=== PATIENT | female | born 1990 | race Caucasian/White ===

== ENCOUNTER 2016-10-15 18:37 | Emergency (ER) | payer OTHER ==
[~2016-10-15] VITALS: Ht 167.6 cm; Wt 96.2 kg
--- NOTE | 2016-10-15 19:04 | PHYS DOC ---
General Chief Complaint: ABDOMINAL PAIN Stated Complaint: ABD PAIN Time Seen by MD: 18:49 Source: patient Exam Limitations: no limitations Problems: History of Present Illness Initial Comments Pt is 25/F to ED c/o abdominal pain. Pt has h/o GERD/gastritis, follows with a GI doctor in [place], [place]. States her last EGD she thinks was seven years ago, GERD sx have been controlled. Past 2 days mild GI upset, today worsening of epigastric burning pain with belching and "taste of blood." Sx worse after eating certain foods, her usual GERD meds not helping. No vomitting/diarrhea, last BM yesterday normal. Multiple sick contacts with GI illness recently, pt denies bad food/travel. No fever/chills/myalgias/FREITAS/cp/sob/bowel or bladder sx. Timing/Duration: 24 hours Severity: moderate Modifying Factors: worse with eating Associated Symptoms: malaise, nausea/vomiting, other Allergies: Coded Allergies: ampicillin (Verified Allergy, Unknown, 10/15/16) promethazine (Verified Allergy, Unknown, 10/15/16) Past Medical History Medical History: GERD (gastritis), peptic ulcer disease Surgical History: cholecystectomy Social History Smoker: non-smoker Alcohol: none Drugs: none Review of Systems Constitutional: denies chills, denies diaphoresis, denies fever, denies malaise EENTM: denies eye pain, denies ear pain, denies nose pain, throat pain ( burning)denies throat swelling Respiratory: denies cough, denies shortness of breath, denies wheezing Cardiovascular: denies chest pain, denies palpitations, denies syncope Gastrointestinal: see HPI abdominal paindenies diarrhea, nauseadenies vomiting, other Genitourinary: denies dysuria, denies frequency, denies hematuria Musculoskeletal: denies back pain, denies joint swelling, denies muscle stiffness, denies neck pain Psychiatric/Neurological: denies headache, denies numbness, denies paresthesia Hematologic/Lymphatic: denies blood clots, denies easy bleeding, denies easy bruising Physical Exam General Appearance: WD/WN, no apparent distress Eyes: bilateral eye EOMI, bilateral eye PERRL, bilateral eye normal inspection Ear, Nose, Throat: hearing grossly normal, normal ENT inspection, normal pharynx Neck: non-tender, supple Respiratory: normal breath sounds, no respiratory distress Gastrointestinal: normal bowel sounds, soft (ND, epigastric TTP no r/g/mass, neg mcburney) Rectal: deferred Back: no CVA tenderness, no vertebral tenderness Extremities: non-tender, normal inspection 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 Continue current meds. OTC tylenol and analgesic throat sprays as needed. Aggressive hydration with gatorade, water. Rx: zithromax Follow up with your doctor in 5-7 days for recheck. Return to ED with new or changing symptoms. Orders, Labs, Meds 2030: Time in dept 1h 55min, pt feeling better labs unremarkable UA pending. UA unremarkable. Pt requesting discharge. Departure Time of Disposition: 20:32 Disposition: HOME, SELF-CARE Diagnosis: Pharyngitis, GERD/Gastritis Condition: IMPROVED Patient Instructions: Diet for Gastroesophageal Reflux Disease, Adult, Easy-to- Read, Gastroesophageal Reflux Disease, Adult, Dyoy-so-Pyxi, Viral and Bacterial Pharyngitis, Zzdo-wv-Xlje Additional Instructions: See handouts for GERD therapeutic lifestyle measures and dietary changes. Continue current meds. OTC tylenol and analgesic throat sprays as needed. Aggressive hydration with gatorade, water. Rx: zithromax Follow up with your doctor in 5-7 days for recheck. Return to ED with new or changing symptoms. RACHEL PUGA DO Oct 15, 2016 19:04
[2016-10-15] MEDS ORDERED: LIDO:MAALOX 1:1 20 ML SINGLE DOSE PO ONE (19:15)
[2016-10-15] MEDS ORDERED: ONDANSETRON ODT 4 MG TAB.RAPDIS PO ONE (19:15)
[2016-10-15 19:58] LABS: BASO # 0.1 x10^3/uL (0.0-0.2); BASO % 1 % (0-3); EOS # 0.1 x10^3/uL (0.0-0.7); EOS % 1 % (0-3); HEMOGLOBIN 13.4 g/dL (12.0-15.5); LYMPH # 2.4 x10^3/uL (1.0-4.8); LYMPH % 21 % (24-48); MEAN CORPUSCULAR HEMOGLOBIN 27 pg (25-35); MEAN CORPUSCULAR HGB CONC 33 g/dL (31-37); MEAN CORPUSCULAR VOLUME 83 fL (79-100); MONO # 0.6 x10^3/uL (0.0-1.1); MONO % 5 % (0-9); NEUT # 8.3 x10^3uL (1.8-7.7); NEUT % 72 % (31-73); PLATELET COUNT 398 x10^3/uL (140-400); RED BLOOD COUNT 4.95 x10^6/uL (3.50-5.40); RED CELL DISTRIBUTION WIDTH 15.7 % (11.5-14.5); WHITE BLOOD COUNT 11.4 x10^3/uL (4.0-11.0)
[2016-10-15 20:06] LABS: ALBUMIN 4.2 g/dL (3.4-5.0); CALCIUM 9.4 mg/dL (8.5-10.1); CREATININE 0.6 mg/dL (0.6-1.0); GFR 123.9; POTASSIUM 4.1 mmol/L (3.5-5.1); TOTAL BILIRUBIN 0.3 mg/dL (0.2-1.0); TOTAL PROTEIN 8.5 g/dL (6.4-8.2)
[2016-10-15 20:42] LABS: BACTERIA,URINE 0 /HPF (0-FEW); BILIRUBIN,URINE NEG (NEG); CLARITY,URINE CLEAR; COLOR,URINE STRAW; GLUCOSE,URINE NEG (NEG); NITRITE,URINE NEG (NEG); RBC,URINE 0 /HPF (0-2); SQUAMOUS EPITHELIAL CELL,UR OCC /LPF; UROBILINOGEN,URINE 0.2 mg/dL (0.2 mg/dL); WBC,URINE OCC /HPF (0-4)
[2016-10-15] MEDS ORDERED: AZIT250T PO (20:50)
[2016-10-15 21:00] VITALS: BP 136/72
[2016-10-15] MEDS ORDERED: AZITHROMYCIN 250 MG TABLET. PO ONE (21:00)
== END 2016-10-15 21:16 | disposition home or self-care (01) ==
LOC: ER 18:37
DX: J02.9 Acute pharyngitis, unspecified (principal); K21.9 Gastro-esophageal reflux disease without esophagitis; K29.70 Gastritis, unspecified, without bleeding; Z87.11 Personal history of peptic ulcer disease; Z90.49 Acquired absence of other specified parts of digestive tract; Z88.1 Allergy status to other antibiotic agents; Z88.8 Allergy status to other drugs, medicaments and biological substances
CPT/HCPCS: 36415; 80053; 81001; 83690; 84703; 85027; 99284; J0456; Q0162; 81025

== ENCOUNTER 2016-11-07 00:16 | Emergency (ER) | payer OTHER ==
[~2016-11-07] VITALS: Ht 167.6 cm; Wt 83.0 kg
[~2016-11-07 00:16] MED LIST: AZIT250T PO
[2016-11-07 00:53] VITALS: BP 115/74
--- NOTE | 2016-11-07 01:13 | PHYS DOC ---
General Chief Complaint: FACE PROBLEM Stated Complaint: FACIAL PAIN Time Seen by MD: 01:01 Source: patient Problems: History of Present Illness Initial Comments Patient with male friend for sinus congestion. Patient says his been going on for the past several days. She feels very full and her sinus areas, especially the maxillary sinus areas. She says she feels very dry and somewhat congested as well. She's actually had no runny nose with this. She has no fever or chills. There is no earache. There is no sore throat. No trouble swallowing or talking that she has no complaint of postnasal drip. There is no chest pain or shortness of breath. She has a very slight nonproductive cough. There is no nausea or vomiting. She has no abdominal pain. There is no change amount or bladder habits and she denies any focal extremity or neurologic complaints. She has a Norplant implant and denies chance of . Patient used multiple tnuh-oct-xnefjbb preparations for this including fbbz-oxd-dnperqw cough and cold medications, steam treatments, and Claritin. She says nothing is helpful to her. She says she is afraid that she will be able to breathe well she sleeps , and says that she woke up from sleep today with trouble breathing because she couldn't breathe through her nose. Other than present for care there is been nothing else done for this at home except as described and no other increasing or decreasing factors noted. Patient's past history is remarkable for anxiety and depression as well as reflux and low thyroid. She takes appropriate medication. She is a nonsmoker and nonuser of ethanol. Allergies: Coded Allergies: ampicillin (Verified Allergy, Unknown, 10/15/16) promethazine (Verified Allergy, Unknown, 10/15/16) Past Medical History Medical History: GERD, peptic ulcer disease, other Surgical History: cholecystectomy Psychosocial History: anxiety Social History Smoker: non-smoker Alcohol: none Review of Systems All Other Systems: Reviewed and Negative Physical Exam General Appearance: WD/WN, no apparent distress Ear, Nose, Throat: normal ENT inspection, normal pharynx, other Neck: full range of motion, supple, normal inspection Respiratory: lungs clear, normal breath sounds, no respiratory distress Cardiovascular: regular rate, rhythm, no edema Neurologic/Psychiatric: alert, normal mood/affect, oriented x 3 Skin: normal color Lymphatic: no adenopathy Comments Generally this well-developed well-nourished white female in no acute distress. Vitals are as noted. She is noted to have somewhat of a voice suggestive of nasal congestion. Pertinent findings on physical exam shows ears and throat to be clear. The nose is clear. She does have tenderness to palpation over the maxillary sinuses bilaterally. There is no facial swelling, erythema, or signs of cellulitis. She has no dysphagia or dysphonia or problems with secretions. Neck is supple without adenopathy or JVD. There's no meningeal signs. Chest is clear and cardiovascular exams unremarkable. She is awake alert oriented and cooperative. Remainder of physical exam is clinically unremarkable. Orders, Labs, Meds Old charts note a single ER visit last month for pharyngitis and reflux. I discussed the patient most likely diagnosis of sinusitis. She is not febrile, there is no pustular drainage or discharge or mucus noted, and I really think this probably more viral in nature. Ago and prescribed person appropriate decongestant as well as some Afrin nasal spray. I written a prescription for Bromfed-DM accordingly. She may certainly continue to use Claritin and other cmqr-dem-grsttdo medication at home. We discussed further home care including rest, increasing fluids, warm compresses to the areas of the face, and use steam treatments. I did provide her reassurance that she will fact not stop breathing if she can't breathe through her nose, that her body will take over and she will be able to breathe through her mouth. She does say that she has a primary care physician for follow-up, she is encouraged to follow up with her own doctor this week or return to the ER sooner as needed if worsen anyway. She looks well, in no acute discomfort distress, okay for discharge home at this time. RAFFI FALK MD Nov 07, 2016 01:13
== END 2016-11-07 01:21 | disposition home or self-care (01) ==
LOC: ER 00:16
DX: R09.81 Nasal congestion (principal); R05 Cough; K21.9 Gastro-esophageal reflux disease without esophagitis; Z87.11 Personal history of peptic ulcer disease; Z88.0 Allergy status to penicillin; Z88.8 Allergy status to other drugs, medicaments and biological substances
CPT/HCPCS: 99282; 99283

== ENCOUNTER 2020-07-11 20:10 | Emergency (ER) | payer MEDICAID, OTHER ==
[~2020-07-11] VITALS: Ht 167.6 cm; Wt 109.3 kg
[2020-07-11 20:55] VITALS: BP 115/74
--- NOTE | 2020-07-11 20:59 | PHYS DOC ---
Past History Past Medical History: Anxiety, Depression, GERD, Hypothyroid, Other (MASTER MOURA APRN) Past Surgical History: Cholecystectomy (MASTER MOURA APRN) Alcohol Use: None Drug Use: None (MASTER MOURA APRN) General Adult EDM: Chief Complaint: MULTIPLE COMPLAINTS HPI: HPI: Patient is a 29-year-old female who presents with sinus pressure, headache x1 week. Patient denies fever, vomiting, diarrhea. Patient states that she has been taking Benadryl and Tylenol for pain. (MASTER MOURA APRN) Review of Systems: Review of Systems: Constitutional: Denies fever or chills Eyes: Denies change in visual acuity HENT: Reports nasal congestion or sore throat Respiratory: Denies cough or shortness of breath Cardiovascular: Denies chest pain or edema GI: Denies abdominal pain, nausea, vomiting, bloody stools or diarrhea : Denies dysuria Musculoskeletal: Denies back pain or joint pain Integument: Denies rash Neurologic: Denies focal weakness or sensory changes, reports headache Endocrine: Denies polyuria or polydipsia Lymphatic: Reports swollen cervical lymph nodes Psychiatric: Denies depression or anxiety (MASTER MOURA APRN) Allergies: Allergies: Allergies Coded Allergies Type Severity Reaction Last Updated Verified ampicillin Allergy Unknown 10/15/16 Yes promethazine Allergy Unknown 10/15/16 Yes (MASTER MOURA APRN) Physical Exam: PE: Constitutional: Well developed, well nourished, no acute distress, non-toxic appearance. [] HENT: Normocephalic, atraumatic, bilateral external ears normal, oropharynx moist, no oral exudates, nose normal. [] Eyes: PERRLA, EOMI, conjunctiva normal, no discharge. [] Neck: Normal range of motion, no tenderness, supple, no stridor. [] Cardiovascular:Heart rate regular rhythm, no murmur [] Lungs & Thorax: Bilateral breath sounds clear to auscultation [] Abdomen: Bowel sounds normal, soft, no tenderness, no masses, no pulsatile masses. [] Skin: Warm, dry, no erythema, no rash. [] Back: No tenderness, no CVA tenderness. [] Extremities: No tenderness, no cyanosis, no clubbing, ROM intact, no edema. [] Neurologic: Alert and oriented X 3, normal motor function, normal sensory function, no focal deficits noted. [] Psychologic: Affect normal, judgement normal, mood normal. [] (MASTER MOURA APRN) EKG: EKG: [] (MASTER MOURA APRN) Radiology/Procedures: Radiology/Procedures: [] (MASTER MOURA APRN) Heart Score: Risk Factors: Risk Factors: DM, Current or recent (<one month) smoker, HTN, HLP, family history of CAD, obesity. Risk Scores: Score 0 - 3: 2.5% MACE over next 6 weeks - Discharge Home Score 4 - 6: 20.3% MACE over next 6 weeks - Admit for Clinical Observation Score 7 - 10: 72.7% MACE over next 6 weeks - Early Invasive Strategies (MASTER MOURA APRN) Course & Med Decision Making: Course & Med Decision Making Pertinent Labs and Imaging studies reviewed. (See chart for details) []Patient dcd to home for supportive care. Patient instructed to follow up with PCP at the beginning of the week if symptoms not imporoving. Continue OTC, Mucinex, Motrin. (MASTER MOURA APRN) Course & Med Decision Making I oversaw on the above date of service of this patient and discussed the care with the THERAPEUTIC ASSISTANT. I agree with the findings, plan of care, and disposition as documented. (MARIELENA VIZCARRA DO) Rema Disclaimer: Rema Disclaimer: This electronic medical record was generated, in whole or in part, using a voice recognition dictation system. (MASTER MOURA APRN) Departure Departure: Impression: Primary Impression: Sinusitis Qualified Codes: J01.01 - Acute recurrent maxillary sinusitis Disposition: DC HOME SELF CARE/HOMELESS Condition: STABLE Referrals: MER CLAROS (PCP) Patient Instructions: Sinusitis, Child Additional Instructions: Please take over the counter Mucinex D and Motrin for treatment of symptoms. Warm,Salt Water, Gargles, will also help with sore throat from drainage. Please follow up with your Primary Care Provider if symptoms are worsening by middle of the week. Thank you! MASTER MOURA APRN Jul 11, 2020 20:59 MARIELENA VIZCARRA DO Jul 12, 2020 21:27
== END 2020-07-11 21:16 | disposition home or self-care (01) ==
LOC: ER 20:10
DX: J01.01 Acute recurrent maxillary sinusitis (principal); R51.9 Headache, unspecified; R09.81 Nasal congestion; F41.9 Anxiety disorder, unspecified; F32.9 Major depressive disorder, single episode, unspecified; K21.9 Gastro-esophageal reflux disease without esophagitis; E03.9 Hypothyroidism, unspecified; Z90.49 Acquired absence of other specified parts of digestive tract; Z88.1 Allergy status to other antibiotic agents; Z88.8 Allergy status to other drugs, medicaments and biological substances
CPT/HCPCS: 99284

== ENCOUNTER 2020-08-05 13:16 | Emergency (ER) | payer MEDICAID ==
[~2020-08-05] VITALS: Ht 167.6 cm; Wt 106.0 kg
--- NOTE | 2020-08-05 15:14 | PHYS DOC ---
Past History Past Medical History: Anxiety, Depression, GERD, Hypothyroid, Migraines, Other Past Surgical History: Cholecystectomy, Tubal ligation, Other Additional Past Surgical Histo: oral surgery; lithotrypsy; abdominal scoping Alcohol Use: None Drug Use: None General Adult EDM: Chief Complaint: MECHANICAL FALL HPI: HPI: 29-year-old female presents to the ED with complaints of bilateral upper abdominal pain after patient slipped on a wet floor, fell forward on a plastic laundry basket. States she is worried she " injured something internally, pain is almost as when I was induced." Not on any anticoagulants. Denied her head or lose consciousness. No associated alcohol or drug use. No history of prior abdominal traumatic injury. Review of Systems: Review of Systems: Constitutional: Denies fever or chills Eyes: Denies change in visual acuity HENT: Denies nasal congestion or sore throat Respiratory: Denies cough or shortness of breath Cardiovascular: Denies chest pain or edema GI: Denies abdominal pain, nausea, vomiting, bloody stools or diarrhea : Denies dysuria Musculoskeletal: Denies back pain or joint pain Integument: Denies rash Neurologic: Denies headache, focal weakness or sensory changes Endocrine: Denies polyuria or polydipsia Lymphatic: Denies swollen glands Psychiatric: Denies depression or anxiety Current Medications: Current Meds: Current Medications Medications (Trade) Dose Ordered Sig/Loree Start Time Stop Time Status Last Admin Dose Admin Info (Do NOT chart on this entry -- for MONITORING) 1 each PRN DAILY PRN 08/05/20 15:15 08/07/20 15:14 Iohexol (Omnipaque 300 Mg/ml) 75 ml 1X ONCE 08/05/20 15:15 08/05/20 15:16 Allergies: Allergies: Allergies Coded Allergies Type Severity Reaction Last Updated Verified ampicillin Allergy Unknown 10/15/16 Yes promethazine Allergy Unknown 10/15/16 Yes Physical Exam: PE: Constitutional: Well developed, well nourished, no acute distress, non-toxic appearance. Ambulates steadily in no distress-go from sitting to standing in no distress HENT: Normocephalic, atraumatic, Eyes: EOMI, conjunctiva normal, no discharge. Neck: Normal range of motion, supple, Cardiovascular: S1/2 present, regular rhythm Lungs & Thorax: Speaking in full sentences, bilateral equal chest rise, no tachypnea or increased work of breathing Abdomen: soft, mild left upper quadrant tenderness (grimaces) and epigastric tenderness, no Moreno sign (has no GB), no lower abdominal pain, no peritonitis or rigidity Skin: Warm, dry, no erythema, no rash. [] Back: No tenderness, no CVA tenderness. [] Extremities: No tenderness, no cyanosis, no edema Neurologic: Alert and oriented X 3, normal motor function, normal sensory function, no focal deficits noted. [] Psychologic: Affect normal, judgement normal, mood normal. [] Current Patient Data: Labs: Laboratory Tests Test 08/05/20 13:48 POC Urine HCG, Qualitative hcg negative (Negative) Vital Signs: Vital Signs Date Time Temp Pulse Resp B/P (MAP) Pulse Ox O2 Delivery O2 Flow Rate FiO2 08/05/20 13:25 97.7 92 18 122/75 (91) 98 EKG: EKG: [] Radiology/Procedures: Radiology/Procedures: IMAGING REPORT Signed PATIENT: BLAKE HAWK JACCOUNT: [id number] : 1990 LOCATION: ER AGE: 29 SEX: F EXAM STATUS: REG ER ORD. PHYSICIAN: WENDIE MANUEL DO REASON: BLUNT UPPER ABDOMINAL PAIN/ INJURY PROCEDURE: CT ABD PELV W/ IV CONTRST ONLY CT scan of the abdomen and pelvis with contrast 08/13/2020 CLINICAL HISTORY: Blunt upper abdominal pain and injury. TECHNIQUE: After the intravenous administration of 75 cc of Omnipaque 350 was, 5 mm axial sections were obtained through abdomen and pelvis. One or more of the following individualized dose reduction techniques were utilized for this study: 1. Automated exposure control. 2. Adjustment of the mA and/or kV according to patient size. 3. Use of iterative reconstruction technique. FINDINGS: Images through the lung bases demonstrate minimal dependent subsegmental atelectasis bilaterally. The liver parenchyma has a decreased attenuation consistent with fatty infiltration. The liver is mildly enlarged measuring 20 cm in length. The spleen, pancreas, adrenal glands and kidneys are within normal limits. The abdominal aorta tapers normally. Clips are seen within the gallbladder fossa consistent with a cholecystectomy. No free fluid or free air is seen within the abdomen. There is no evidence of bowel obstruction. Air and stool are seen throughout the colon. The appendix is not visualized. No inflammatory changes are seen surrounding the cecum. Images through pelvis demonstrate the urinary bladder to be contracted. No adnexal mass is seen. No free fluid is noted. No pelvic hematoma is seen. The osseous structures are intact. IMPRESSION: No acute abnormality is seen. Electronically signed by: Gonzalo Noyola MD (08/05/2020 3:52 PM) [id number] DICTATED AND SIGNED BY: GONZALO NOYOLA MD DATE: 08/05/20 1540 CC: MER CLAROS; WENDIE MANUEL DO ~MTH0 0 Heart Score: Risk Factors: Risk Factors: DM, Current or recent (<one month) smoker, HTN, HLP, family history of CAD, obesity. Risk Scores: Score 0 - 3: 2.5% MACE over next 6 weeks - Discharge Home Score 4 - 6: 20.3% MACE over next 6 weeks - Admit for Clinical Observation Score 7 - 10: 72.7% MACE over next 6 weeks - Early Invasive Strategies Course & Med Decision Making: Course & Med Decision Making Pertinent Labs and Imaging studies reviewed. (See chart for details) Patient is insisting on CT imaging despite her well-appearing exam and presentation-moves easily w/out distess. Explained mechanism of injury is not likely to cause intra-abdominal organ injury and the risk of CT scan includes radiation/risk of cancer. Pt still requests CT imaging which showed no intra abdominal injury. Labs with nonspecific elevation of ALT and alk phos. Has no RUQ pain on physical exam. Recommend rest, hydration and gjhs-cnw-owpyscz analgesia will discharge home with strict ED return precautions were given for worsening pain, back pain, hematuria, melena or hematochezia or neurologic deficits. Encouraged urgent outpatient follow-up with PMD in the next week. Life-threatening processes were considered but are low suspicion at this time, given history, physical exam and ED workup. Pt was educated on all prescription medications and adverse effects. All patient's questions were answered and pt was stable at time of discharge. Life/limb-threatening differential includes but is not limited to, aortic dissection, aortic aneurysm, acute coronary syndrome, surgical abdomen (appendicitis, cholecystitis, ischemic bowel, strangulated hernia, etc), bowel obstruction or volvulus, bladder outlet obstruction, gastrointestinal bleeding, inflammatory bowel disease, peptic ulcer disease, ACS/CAD, sepsis, diverticular disease, ureterolithiasis, nephrolithiasis, ovarian torsion, ectopic , vaginal hemorrhage, or genitourinary infection. I spoken with the patient and her caregivers. I explained the patient's condition, diagnoses and treatment plan based on the information available to me at this time. I have answered the patient and her caregiver's questions and addressed any concerns. The patient and her caregivers have a good understanding of patient's diagnosis, condition and treatment plan as can be expected at this point. Vital signs have been stable. Patient's condition is stable and appropriate for discharge from the emergency department. Patient will pursue further outpatient evaluation with primary care physician or other designated or consulting physician as outlined in the discharge instructions. The patient and/or caregivers are agreeable to this plan of care and follow-up instructions have been explained in detail. The patient and/or caregivers have received these instructions in written form and have expressed an understanding of the discharge instructions. The patient and/or caregivers are aware that any significant change of condition or worsening of symptoms should prompt immediate return to this or the closest emergency department or call to 911Jorden Hodgson Disclaimer: Rema Disclaimer: This electronic medical record was generated, in whole or in part, using a voice recognition dictation system. Departure Departure: Impression: Primary Impression: LUQ abdominal pain Additional Impression: Blunt trauma of abdominal wall Disposition: 01 DC HOME SELF CARE/HOMELESS Condition: STABLE Referrals: MER CLRAOS (PCP) within 5-7 days Patient Instructions: Blunt Abdominal Trauma, Contusion Additional Instructions: EMERGENCY DEPARTMENT GENERAL DISCHARGE INSTRUCTIONS Thank you for coming to [facility] (ED) today and trusting us with you care. We trust that you had a positivie experience in our Emergency Department. If you wish to speak to the department management, you may call the director at [phone]. YOUR FOLLOW UP INSTRUCTIONS ARE FOLLOWS: 1. Do you have a private Doctor? If you do not have a private doctor, please ask for a resource list of physicians or clinics that may be able to assist you with follow up care. 2. The Emergency Physician has interpreted your x-rays. The X-Ray specialist will also review them. If there is a change in the findings, you will be notified in 48 hours when at all possible. 3. A lab test or culture has been done, your results will be reviewed and you will be notified if you need a change in treatment. ADDITIONAL INSTRUCTIONS AND INFORMATION: 1. Your care today has been supervised by a physician who is specially trained in emergency care. Many problems require more than one evaluation for a complete diagnosis and treatment. We recommend that you schedule your follow up appointment as recommended to ensure complete treatment of you illness or injury. If you are unable to obtain follow up care and continue to have a problem, or if your condition worsens, we recommend that you return to the ED. 2. We are not able to safely determine your condition over the phone nor are we able to give sound medical advice over the phone. For these safety reasons, if you call for medical advice we will ask you to come to the ED for further evaluation. 3. If you have any questions regarding these discharge instructions please call the ED at [phone]. SAFETY INFORMATION: In the interest of safety, wellness, and injury prevention; we encourage you to wear your sealbelt, if you smoke; quite smoking, and we encourage family to use a protective helmet for bicycling and other sporting events that present an increased risk for head injury. IF YOUR SYMPTOMS WORSEN OR NEW SYMPTOMS DEVELOP, OR YOU HAVE CONCERNS ABOUT YOUR CONDITION; OR IF YOUR CONDITION WORSENS WHILE YOU ARE WAITING FOR YOUR FOLLOW UP APPOI NTMENT; EITHER CONTACT YOUR PRIMARY CARE DOCTOR, THE PHYSICIAN WHOSE NAME AND NUMBER YOU WERE GIVEN, OR RETURN TO THE ED IMMEDIATELY. WENDIE MANUEL DO Aug 05, 2020 15:14
[2020-08-05] MEDS ORDERED: IOHEXOL 300 MG/ML 75 ML VIAL. IV ONE (15:15)
[2020-08-05] MEDS ORDERED: CONTRAST GIVEN. MC PRN (15:15)
--- NOTE | 2020-08-05 15:55 | RAD ---
CT scan of the abdomen and pelvis with contrast 08/13/2020 CLINICAL HISTORY: Blunt upper abdominal pain and injury. TECHNIQUE: After the intravenous administration of 75 cc of Omnipaque 350 was, 5 mm axial sections we re obtained through abdomen and pelvis. One or more of the following individualized dose reduction techniques were utilized for this study: 1. Automated exposure control. 2. Adjustment of the mA and/or kV according to patient size. 3. Use of iterative reconstruction technique. FINDINGS: Images through the lung bases demonstrate minimal dependent subsegmental atelectasis bilate rally. The liver parenchyma has a decreased attenuation consistent with fatty infiltration. The liver is mil dly enlarged measuring 20 cm in length. The spleen, pancreas, adrenal glands and kidneys are within n ormal limits. The abdominal aorta tapers normally. Clips are seen within the gallbladder fossa consistent with a ch olecystectomy. No free fluid or free air is seen within the abdomen. There is no evidence of bowel ob struction. Air and stool are seen throughout the colon. The appendix is not visualized. No inflammato ry changes are seen surrounding the cecum. Images through pelvis demonstrate the urinary bladder to be contracted. No adnexal mass is seen. No f ree fluid is noted. No pelvic hematoma is seen. The osseous structures are intact. IMPRESSION: No acute abnormality is seen. Electronically signed by: Gonzalo Noyola MD (08/05/2020 3:52 PM) [id number]
[2020-08-05 16:00] LABS: BASO % 1 % (0-3); EOS # 0.1 x10^3/uL (0.0-0.7); EOS % 1 % (0-3); HEMATOCRIT 43.5 % (36.0-47.0); HEMOGLOBIN 14.2 g/dL (12.0-15.5); LYMPH # 2.1 x10^3/uL (1.0-4.8); LYMPH % 28 % (24-48); MEAN CORPUSCULAR HEMOGLOBIN 29 pg (25-35); MEAN CORPUSCULAR HGB CONC 33 g/dL (31-37); MEAN CORPUSCULAR VOLUME 89 fL (79-100); MONO # 0.4 x10^3/uL (0.0-1.1); MONO % 6 % (0-9); NEUT # 4.6 x10^3uL (1.8-7.7); NEUT % 64 % (31-73); PLATELET COUNT 326 x10^3/uL (140-400); RED BLOOD COUNT 4.87 x10^6/uL (3.50-5.40); RED CELL DISTRIBUTION WIDTH 14.7 % (11.5-14.5); WHITE BLOOD COUNT 7.3 x10^3/uL (4.0-11.0)
[2020-08-05 16:13] LABS: CALCIUM 9.3 mg/dL (8.5-10.1); CREATININE 0.6 mg/dL (0.6-1.0); GFR 119.9; POTASSIUM 3.8 mmol/L (3.5-5.1)
[2020-08-05 16:25] LABS: ALBUMIN 4.5 g/dL (3.4-5.0); TOTAL BILIRUBIN 0.4 mg/dL (0.2-1.0); TOTAL PROTEIN 8.8 g/dL (6.4-8.2)
[2020-08-05] MEDS ORDERED: KETOROLAC 15 MG/ML VIAL. IVP ONE (16:45)
[2020-08-05 17:15] VITALS: BP 114/72
== END 2020-08-05 17:15 | disposition home or self-care (01) ==
LOC: ER 13:16
DX: S39.91XA Unspecified injury of abdomen, initial encounter (principal); R10.12 Left upper quadrant pain; R10.11 Right upper quadrant pain; R10.13 Epigastric pain; F41.9 Anxiety disorder, unspecified; F32.9 Major depressive disorder, single episode, unspecified; K21.9 Gastro-esophageal reflux disease without esophagitis; E03.9 Hypothyroidism, unspecified; G43.909 Migraine, unspecified, not intractable, without status migrainosus; Z90.49 Acquired absence of other specified parts of digestive tract; Z98.51 Tubal ligation status; Z88.1 Allergy status to other antibiotic agents; Z88.8 Allergy status to other drugs, medicaments and biological substances; W01.0XXA Fall on same level from slipping, tripping and stumbling without subsequent striking against object, initial encounter; Y93.89 Activity, other specified; Y92.89 Other specified places as the place of occurrence of the external cause; Y99.8 Other external cause status
CPT/HCPCS: 36415; 74177; 80053; 81025; 83690; 85025; 96374; 99285; J1885; Q9967

== ENCOUNTER 2021-05-10 16:41 | Emergency (ER) | payer MEDICAID ==
[~2021-05-10] VITALS: Ht 157.5 cm; Wt 106.0 kg
[2021-05-10 16:45] VITALS: BP 114/72
[2021-05-10] MEDS ORDERED: TETRACAINE 0.5% OPHTH SOLUTION 4ML BOTTLE. OS ONE (17:00)
[2021-05-10] MEDS ORDERED: FLUORESCEIN 1MG EYE STRIP. OS ONE (17:00)
--- NOTE | 2021-05-10 17:20 | PHYS DOC ---
Past History Past Medical History: Anxiety, Depression, GERD, Hypothyroid, Migraines, Other (BHAVNA STEIN APRN) Past Surgical History: Cholecystectomy, Tubal ligation, Other Additional Past Surgical Histo: oral surgery; lithotrypsy; abdominal scoping (BHAVNA STEIN APRN) Alcohol Use: None Drug Use: None (BHAVNA STEIN APRN) General Adult EDM: Chief Complaint: EYE PROBLEMS HPI: HPI: Patient is a 30-year-old female who presents to the emergency department for possible foreign body to her left eye. Patient reports around 12:00 this afternoon she felt a johnson of wind and she felt something hit her face and thought maybe a splinter got in her eye. Patient denies any eye discharge, vision changes. She rates her pain 1 out of 10. She reports that most of her pain is located towards her cornea. She states that she attempted to remove the foreign body but was unable to. (BHAVNA STEIN APRN) Review of Systems: Review of Systems: 14 body systems of the review of systems have been reviewed. See HPI for pertinent positive and negative responses, otherwise all other systems are negative, nonpertinent or noncontributory (BHAVNA STEIN APRN) Current Medications: Current Meds: Current Medications Medications (Trade) Dose Ordered Sig/Loree Start Time Stop Time Status Last Admin Dose Admin Fluorescein Sodium (Ful-Carolyn 1mg) 1 strip 1X ONCE 05/10/21 17:00 05/10/21 17:01 DC 05/10/21 17:00 1 STRIP Tetracaine HCl (Tetracaine) 1 drop 1X ONCE 05/10/21 17:00 05/10/21 17:01 DC 05/10/21 17:00 1 DROP (BHAVNA STEIN APRN) Allergies: Allergies: Allergies Coded Allergies Type Severity Reaction Last Updated Verified ampicillin Allergy Unknown 05/10/21 Yes promethazine Allergy Unknown 05/10/21 Yes (BHAVNA STEIN APRN) Physical Exam: PE: Constitutional: Well developed, well nourished, no acute distress, non-toxic appearance. [] HENT: Normocephalic, atraumatic, bilateral external ears normal, oropharynx moist, no oral exudates, nose normal. [] Eyes: PERRLA, 4 mm pupils bilaterally, mild erythema noted to the corner of left eye proximal to the cornea, EOMI, no discharge. [] Neck: Normal range of motion, n no stridor Cardiovascular: Normal peripheral perfusion Lungs & Thorax: Normal work of breathing, no tachypnea Abdomen: Obese, soft Skin: Warm, dry, no erythema, no rash. [] Back: Range of motion Extremities: No tenderness, no cyanosis, no clubbing, ROM intact, no edema. [] Neurologic: Alert and oriented X 3, normal motor function, normal sensory function, no focal deficits noted. [] Psychologic: Affect normal, judgement normal, mood normal. [] (BHAVNA STEIN APRN) Current Patient Data: Vital Signs: Vital Signs Date Time Temp Pulse Resp B/P (MAP) Pulse Ox O2 Delivery O2 Flow Rate FiO2 05/10/21 16:45 97.7 72 18 114/72 (86) 94 Room Air (BHAVNA STEIN APRN) EKG: EKG: [] (BHAVNA STEIN APRN) Radiology/Procedures: Radiology/Procedures: [] (BHAVNA STEIN APRN) Heart Score: C/O Chest Pain: N/A Risk Factors: Risk Factors: DM, Current or recent (<one month) smoker, HTN, HLP, family history of CAD, obesity. Risk Scores: Score 0 - 3: 2.5% MACE over next 6 weeks - Discharge Home Score 4 - 6: 20.3% MACE over next 6 weeks - Admit for Clinical Observation Score 7 - 10: 72.7% MACE over next 6 weeks - Early Invasive Strategies (BHAVNA STEIN APRN) Course & Med Decision Making: Course & Med Decision Making Pertinent Labs and Imaging studies reviewed. (See chart for details) [] Patient presents with possible left eye foreign body. Tetracaine and fluorescein used to visualize eye and there was an eyelash in patient's left eye. This was removed. Patient tolerated procedure. No corneal abrasion noted patient reports that her eye pain has resolved. Patient advised to follow-up with her primary care provider. I discussed with patient all findings and diagn ostic testing as well as the need to follow-up with PCP for further evaluation and treatment or return to the ER if any new or worsening symptoms. Strict return precautions were also discussed at length. Patient voiced understanding and agreement with the plan. Patient is hemodynamically stable at the time of disposition. (BHAVNA STEIN APRN) Course & Med Decision Making I was the Attending physician on the above date of service of this patient. This patient was evaluated, examined, treated, and dispositioned from the emergency department by the mid-level practitioner. Although I was working at the time , no assistance was requested. Electronically signed, Marielena Vizcarra DO (MARIELENA VIZCARRA DO) [place] Disclaimer: Dragon Disclaimer: This electronic medical record was generated, in whole or in part, using a voice recognition dictation system. (BHAVNA STEIN APRN) Departure Departure: Impression: Primary Impression: Foreign body, eye Qualified Codes: T15.92XA - Foreign body on external eye, part unspecified, left eye, initial encounter Disposition: HOME / SELF CARE / HOMELESS Condition: GOOD Referrals: MER CLAROS (PCP) Patient Instructions: Eye - Foreign Body Additional Instructions: You were seen in the emergency department for a possible foreign body to your left eye. You were noted to have a eyelash in your eye which was removed. Please follow-up with your primary care provider. Return to the emergency department if you have any new or worsening concerns. EMERGENCY DEPARTMENT GENERAL DISCHARGE INSTRUCTIONS Thank you for coming to [facility] (ED) today and trusting us with you care. We trust that you had a positivie experience in our Emergency Department. If you wish to speak to the department management, you may call the director at [phone]. YOUR FOLLOW UP INSTRUCTIONS ARE FOLLOWS: 1. Do you have a private Doctor? If you do not have a private doctor, please ask for a resource list of physicians or clinics that may be able to assist you with follow up care. 2. The Emergency Physician has interpreted your x-rays. The X-Ray specialist will also review them. If there is a change in the findings, you will be notified in 48 hours when at all possible. 3. A lab test or culture has been done, your results will be reviewed and you will be notified if you need a change in treatment. ADDITIONAL INSTRUCTIONS AND INFORMATION: 1. Your care today has been supervised by a physician who is specially trained in emergency care. Many problems require more than one evaluation for a complete diagnosis and treatment. We recommend that you schedule your follow up appointment as recommended to ensure complete treatment of you illness or injury. If you are unable to obtain follow up care and continue to have a problem, or if your condition worsens, we recommend that you return to the ED. 2. We are not able to safely determine your condition over the phone nor are we able to give sound medical advice over the phone. For these safety reasons, if you call for medical advice we will ask you to come to the ED for further evaluation. 3. If you have any questions regarding these discharge instructions please call the ED at [phone]. SAFETY INFORMATION: In the interest of safety, wellness, and injury prevention; we encourage you to wear your sealbelt, if you smoke; quite smoking, and we encourage family to use a protective helmet for bicycling and other sporting events that present an increased risk for head injury. IF YOUR SYMPTOMS WORSEN OR NEW SYMPTOMS DEVELOP, OR YOU HAVE CONCERNS ABOUT YOUR CONDITION; OR IF YOUR CONDITION WORSENS WHILE YOU ARE WAITING FOR YOUR FOLLOW UP APPOINTMENT; EITHER CONTACT YOUR PRIMARY CARE DOCTOR, THE PHYSICIAN WHOSE NAME AND NUMBER YOU WERE GIVEN, OR RETURN TO THE ED IMMEDIATELY. BHAVNA STEIN APRN May 10, 2021 17:20 MARIELENA VIZCARRA DO May 13, 2021 09:06
== END 2021-05-10 17:39 | disposition home or self-care (01) ==
LOC: ER 16:41
DX: T15.92XA Foreign body on external eye, part unspecified, left eye, initial encounter (principal); K21.9 Gastro-esophageal reflux disease without esophagitis; Z90.49 Acquired absence of other specified parts of digestive tract; Z98.51 Tubal ligation status; W22.8XXA Striking against or struck by other objects, initial encounter; Y93.89 Activity, other specified; Y92.89 Other specified places as the place of occurrence of the external cause; Y99.8 Other external cause status
CPT/HCPCS: 99282-25; 99284-25